=== PATIENT | female | born 1940 | race Caucasian/White ===

== ENCOUNTER 2016-12-20 10:01 | Emergency (ER) | payer MEDICARE, OTHER ==
[~2016-12-20] VITALS: Ht 160 cm; Wt 68.2 kg
[~2016-12-20 10:01] MED LIST: ASPIRIN 81M81 MG/TA2 PO; DITROPAN 5MG TAB5 MG PO; FLAGYL500 MG PO; NORVASC 5MG5 MG/TAB PO; TRICOR145 MG PO; ZOFRAN ODT4 MG PO
[2016-12-20 10:03] VITALS: BP 145/84; TEMP 97.9
[2016-12-20] MEDS ORDERED: OSCAL 500 TAB500 MG PO (11:23)
[2016-12-20] MEDS ORDERED: METAMUCIL MUL0.52 GM PO (11:23)
[2016-12-20] MEDS ORDERED: CRANBERRY FRUI405 MG PO (11:24)
[2016-12-20] MEDS ORDERED: MULTIPLE VITAMI1 CAP PO (11:24)
[2016-12-20 11:59] VITALS: PULSE 74
== END 2016-12-20 11:59 | disposition home or self-care (01) ==
LOC: COL.ER 10:01
DX: R60.0 Localized edema (principal); Z86.718 Personal history of other venous thrombosis and embolism

== ENCOUNTER → 2017-05-11 | Outpatient (CLI) | payer MEDICARE ==
[~2017-05-11] MED LIST changes: +CRANBERRY FRUI405 MG PO; +METAMUCIL MUL0.52 GM PO; +MULTIPLE VITAMI1 CAP PO; +OSCAL 500 TAB500 MG PO
== END ==
LOC: MC.RAD 09:40
DX: Z12.31 Encounter for screening mammogram for malignant neoplasm of breast (principal)

== ENCOUNTER 2017-12-15 13:57 | Emergency (ER) | payer OTHER ==
[~2017-12-15] VITALS: Ht 160 cm; Wt 70.5 kg
[2017-12-15 14:02] VITALS: BP 151/84
[2017-12-15 16:25] VITALS: PULSE 67; TEMP 97.3
== END 2017-12-15 15:35 | disposition home or self-care (01) ==
LOC: COL.ER 13:57
DX: S01.81XA Laceration without foreign body of other part of head, initial encounter (principal); S80.02XA Contusion of left knee, initial encounter; I10 Essential (primary) hypertension; R40.2412 Glasgow coma scale score 13-15, at arrival to emergency department; Z23 Encounter for immunization; Z96.643 Presence of artificial hip joint, bilateral; Z96.653 Presence of artificial knee joint, bilateral; Z79.82 Long term (current) use of aspirin; W01.198A Fall on same level from slipping, tripping and stumbling with subsequent striking against other object, initial encounter; Y92.512 Supermarket, store or market as the place of occurrence of the external cause

== ENCOUNTER 2017-12-22 13:00 | Emergency (ER) | payer OTHER ==
[2017-12-22 13:22] VITALS: BP 173/73; PULSE 66
== END 2017-12-22 13:45 | disposition home or self-care (01) ==
LOC: COL.ER 13:00
DX: S01.112D Laceration without foreign body of left eyelid and periocular area, subsequent encounter (principal); X58.XXXD Exposure to other specified factors, subsequent encounter

== ENCOUNTER 2018-01-05 11:50 | Emergency (ER) | payer MEDICARE ==
[~2018-01-05] VITALS: Ht 160 cm; Wt 70.5 kg
[2018-01-05 11:53] VITALS: BP 142/80; PULSE 79; TEMP 97.5
== END 2018-01-05 13:04 | disposition home or self-care (01) ==
LOC: COL.ER 11:50
DX: S05.12XA Contusion of eyeball and orbital tissues, left eye, initial encounter (principal); W01.198A Fall on same level from slipping, tripping and stumbling with subsequent striking against other object, initial encounter; Y92.009 Unspecified place in unspecified non-institutional (private) residence as the place of occurrence of the external cause

== ENCOUNTER → 2018-05-28 | Outpatient (CLI) | payer MEDICARE | LOC: MC.RAD 14:40 | DX: Z12.31 Encounter for screening mammogram for malignant neoplasm of breast (principal) ==

== ENCOUNTER 2018-07-28 18:23 | Emergency (ER) | payer MEDICARE ==
[~2018-07-28] VITALS: Ht 160 cm; Wt 65.9 kg
[2018-07-28 18:30] VITALS: TEMP 97.8
[2018-07-28] MEDS ORDERED: MASON NATURAL1200 MG PO (18:39)
[2018-07-28] MEDS ORDERED: HYGROTON 2525 MG/TAB (18:39)
[2018-07-28] MEDS ORDERED: CITRACAL + D CA1 TAB (18:40)
[2018-07-28] MEDS ORDERED: FLONASEALLERGY NS (18:42)
[2018-07-28 20:10] VITALS: BP 161/75; PULSE 68
== END 2018-07-28 20:10 | disposition home or self-care (01) ==
LOC: COL.ER 18:23
DX: S00.03XA Contusion of scalp, initial encounter (principal); I10 Essential (primary) hypertension; Z79.82 Long term (current) use of aspirin; W01.0XXA Fall on same level from slipping, tripping and stumbling without subsequent striking against object, initial encounter

== ENCOUNTER 2019-03-04 11:15 | Outpatient (RCR) | payer MEDICARE ==
[~2019-03-04 11:15] MED LIST changes: +CITRACAL + D CA1 TAB; +FLONASEALLERGY NS; +HYGROTON 2525 MG/TAB; +MASON NATURAL1200 MG PO
== END 2019-03-05 | disposition home or self-care (01) ==
LOC: MKS.ESL.OT
DX: M62.542 Muscle wasting and atrophy, not elsewhere classified, left hand (principal); M62.541 Muscle wasting and atrophy, not elsewhere classified, right hand; G62.9 Polyneuropathy, unspecified; Z79.82 Long term (current) use of aspirin; Z79.899 Other long term (current) drug therapy

== ENCOUNTER 2019-04-29 17:54 | Emergency (ER) | payer MEDICARE ==
[~2019-04-29] VITALS: Ht 157.5 cm; Wt 51.8 kg
[2019-04-29 18:10] VITALS: TEMP 97.3
[2019-04-29] MEDS ORDERED: DITROPAN 5MG TAB5 MG PO (21:03)
[2019-04-29] MEDS ORDERED: SLOW-MAG 6464 MG/TAB PO (21:03)
[2019-04-29] MEDS ORDERED: MULTIPLE VITAMI1 CAP PO (21:03)
[2019-04-29] MEDS ORDERED: METAMUCIL3.4 GM/Dos (21:04)
[2019-04-29] MEDS ORDERED: RILUTEK 50MG TA50 MG PO (21:04)
[2019-04-29] MEDS ORDERED: FOSAMAX 70MG TA70 MG PO (21:04)
[2019-04-29] MEDS ORDERED: VALIUM 2MG T2 MG/TAB PO (21:04)
[2019-04-29] MEDS ORDERED: MARINOL 2.5MG2.5 MG PO (21:04)
[2019-04-29] MEDS ORDERED: ASPIRIN 81M81 MG/TA2 PO (21:05)
[2019-04-29] MEDS ORDERED: LIPITOR 10MG10 MG PO (21:05)
[2019-04-29] MEDS ORDERED: HYGROTON 2525 MG/TAB (21:05)
[2019-04-29] MEDS ORDERED: FLOVENT DI50 MCG/Act IH (21:05)
[2019-04-29] MEDS ORDERED: CITRACAL + D CA1 TAB (21:05)
[2019-04-29] MEDS ORDERED: CRANBERRY FRUI425 MG PO (21:05)
[2019-04-29 21:06] VITALS: BP 141/68; PULSE 91
== END 2019-04-29 21:17 | disposition home or self-care (01) ==
LOC: COL.ER 17:54
DX: G12.21 Amyotrophic lateral sclerosis (principal); R05 Cough; I10 Essential (primary) hypertension; Z79.51 Long term (current) use of inhaled steroids; Z79.82 Long term (current) use of aspirin

== ENCOUNTER 2019-05-09 13:00 | Outpatient (RCR) | payer MEDICARE ==
[~2019-05-09 13:00] MED LIST changes: +CRANBERRY FRUI425 MG PO; +FLOVENT DI50 MCG/Act IH; +FOSAMAX 70MG TA70 MG PO; +HYGROTON 2525 MG/TAB PO; +LIPITOR 10MG10 MG PO; +MARINOL 2.5MG2.5 MG PO; +METAMUCIL3.4 GM/Dos; +RILUTEK 50MG TA50 MG PO; +SLOW-MAG 6464 MG/TAB PO; +VALIUM 2MG T2 MG/TAB PO
[2019-05-14] MEDS ORDERED: ZOFRAN 4MG T4 MG/TAB PO (21:17)
[2019-05-15] MEDS ORDERED: METAMUCIL MUL0.52 GM PO (01:21)
== END 2019-05-18 14:49 | disposition expired ==
LOC: MKS.ESL.PT 13:00
DX: G12.21 Amyotrophic lateral sclerosis (principal)

== ENCOUNTER 2019-05-13 16:42 | Outpatient (CLI) | payer MEDICARE ==
[~2019-05-13] VITALS: Ht 157.5 cm; Wt 45.9 kg
[2019-05-13 17:49] VITALS: BP 99/68; PULSE 101; TEMP 97.4
[2019-05-14] MEDS ORDERED: ZOFRAN 4MG T4 MG/TAB PO (21:17)
== END 2019-05-13 19:18 | disposition home or self-care (01) ==
LOC: EUO 16:42
DX: G12.21 Amyotrophic lateral sclerosis (principal)
CPT/HCPCS: J7030

== ENCOUNTER 2019-05-14 20:03 | Inpatient (IN) | payer MEDICARE ==
[~2019-05-14] VITALS: Ht 162.6 cm; Wt 51.8 kg
[2019-05-14 20:49] LABS: BASO % 0.3 % (0.0-2.0); EOS % 0.2 % (0-4.0); GRAN # 7.1 (1.4-6.5); GRAN % 77.2 % (42.2-75.2); HEMATOCRIT 44.8 % (37.0-47.0); HEMOGLOBIN 15.2 g/dl (12.5-16.0); LYMPH # 1.3 (1.2-3.4); LYMPH % 14.5 % (20.0-51.0); MEAN CELL VOLUME 87 fl (80.0-100.0); MEAN CORPUSCULAR HEMOGLOBIN 30 pg (27.0-31.0); MEAN CORPUSCULAR HGB CONC 34 g/dl (33.0-37.0); MEAN PLATELET VOLUME 10.1 fl (7.4-10.4); MONO # 0.7 (0.1-0.6); MONO % 7.5 % (1.7-9.3); PLATELET COUNT 275 K/mm3 (130-400); RED BLOOD COUNT 5.14 M/mm3 (4.10-5.30); REDCELL DISTRIBUTION WIDTH-CV 13.8 % (11.5-14.5)
[2019-05-14 21:14] LABS: ALBUMIN 3.5 gm/dL (3.5-5.0); BILIRUBIN,TOTAL 0.8 mg/dL (0.0-1.0); C-REACTIVE PROTEIN 3.4 mg/dL (0.0-0.9); CALCIUM 9.3 mg/dL (8.4-10.2); CREATININE, serum 0.31 (0.52-1.25); POTASSIUM 3.3 mmol/L (3.4-5.0); TOTAL PROTEIN 6.3 gm/dL (6.4-8.2)
[2019-05-14] MEDS ORDERED: ZOFRAN 4MG T4 MG/TAB PO (21:17)
--- NOTE | 2019-05-14 23:55 | NUR ---
Pt arrived to room 311, transferred per stretcher by ED staff. Pt very sleepy, makes eye contact c verbal stimuli but does not respond verbally at this time. at bedside. Pt/hu oriented to room, unit policies et current POC. Questions invited et answered et hu verbalizes understanding. No needs at this time. Call light in reach, bed alarm on. Will continue c admit process.
[2019-05-14 23:56] VITALS: BP 150/78; PULSE 95; TEMP 97.6
[2019-05-15] MEDS ORDERED: METAMUCIL MUL0.52 GM PO (01:21)
[2019-05-15 03:57] VITALS: BP 159/77; PULSE 87; TEMP 97.9
[2019-05-15 06:17] LABS: CALCIUM 8.5 mg/dL (8.4-10.2); CREATININE, serum 0.24 (0.52-1.25); POTASSIUM 3.5 mmol/L (3.4-5.0)
[2019-05-15 06:21] LABS: BASO % 0.2 % (0.0-2.0); GRAN # 8.8 (1.4-6.5); GRAN % 85.7 % (42.2-75.2); HEMATOCRIT 46.8 % (37.0-47.0); HEMOGLOBIN 15.1 g/dl (12.5-16.0); LYMPH # 0.7 (1.2-3.4); LYMPH % 6.5 % (20.0-51.0); MEAN CORPUSCULAR HEMOGLOBIN 30 pg (27.0-31.0); MEAN CORPUSCULAR HGB CONC 32 g/dl (33.0-37.0); MEAN PLATELET VOLUME 10.3 fl (7.4-10.4); MONO # 0.7 (0.1-0.6); MONO % 6.3 % (1.7-9.3); PLATELET COUNT 246 K/mm3 (130-400); RED BLOOD COUNT 5.11 M/mm3 (4.10-5.30)
[2019-05-15 06:38] LABS: MEAN CELL VOLUME 92 fl (80.0-100.0)
[2019-05-15 06:57] VITALS: BP 142/70; PULSE 85; TEMP 98.7
--- NOTE | 2019-05-15 10:30 | NUR ---
SW attended clinical rounds. Patient's present as well. Patient is not alert and is not responsive to verbal/physical stimuli. Doctor spoke with patient's about goals of care and possible g tube placement. reports he would like patient to progress to her baseline and would like to her to be involved in any decisions with g tube placement. also reports patient's two daughters will be visiting later today. Doctor will follow up with and daughters later today. Patient's lives at home with her . Patient's and daughters are primary caretakers. Patient's PCP is Dr Wilson and medications are obtained at [facility]. Chloé uses a lift, hospital bed, lift chair, triology, and cough assist at home. Patient will also be set up with home oxygen. No home health services have been reported. Patient's reports patient does outpatient PT and OT. SW will continue to follow.
[2019-05-15 11:36] VITALS: BP 140/68; PULSE 76
--- NOTE | 2019-05-15 11:36 | NUR ---
Met with daughter in room. has gone home to rest and regroup but shuold be back later. Daughter reports that she and her siblings have been very aware of the rapid decline that their mother has experienced. Yesterday afternoon she was still saying a few words but then got a glazed look on her face and really hasn't said anything since admitted. Even when spoken to, she does not give any clear response. They have been in contact with [facility] to talk about home health services. Introduced the subject of hospice services and the various locations that these can be provided. Even the subject of the feeding tube is not clear. per daughter, pt had not wanted a feeding tube. had reported he needed to talk with her first. At this point she is not able to talk at all. Family is supporting their father and hoping to help him transition in care plans if pt does not regain ability to communicate.
--- NOTE | 2019-05-15 13:28 | NUR ---
requesting for patient to have her home pills as well as a drink of water. Discussed with the that the patient is not alert enough to take anything by mouth and it would not be safe for the patient to drink. Will swab patients mouth to keep it moist and ask about Biotene. Pt repositioned at this time, did slightly open her eyes and mouth at this time. Did not respond to staff.
[2019-05-15 16:49] VITALS: BP 137/58; PULSE 79; TEMP 98.3
[2019-05-15 20:25] VITALS: BP 152/75; PULSE 86; TEMP 96.4
--- NOTE | 2019-05-15 20:50 | NUR ---
PT RESTING IN BED ON LEFT SIDE WITH FAMILY MEMBERS AT SIDE. NO RESPONSE. NO EYE OPENING. PT IS A DNI. WILL CONTINUE TO MONITOR. FAMILY MADE AWARE OF CALL LIGHT.
[2019-05-16 00:12] VITALS: BP 133/68; PULSE 82; TEMP 97.5
[2019-05-16 04:33] VITALS: BP 140/82; PULSE 100; TEMP 96.1
--- NOTE | 2019-05-16 08:00 | NUR ---
Pt resting in bed with eyes closed, resp uneven, periodic, 10/min. Trilogy in place per family's request. Pt's family denies needs at this time. This nurse encourages family to call if pt's condition changes or any needs arise.
--- NOTE | 2019-05-16 08:30 | NUR ---
REPOSITIONED PT PER FAMILYS REQUEST. NO RESPONSE THIS SHIFT. CONTINUES TO BE NPO. NS WITH 40MEQ OF K+ INFUSING IN RIGHT WRIST/FA AT 75ML/HR. BILAT HANDS WITH 3+ PITTING EDEMA. SEQUENTIALS ON BILAT. HOB ELEVATED. AROUND 3:30ISH PT'S SPOUSE CAME TO NURSES DESK AND SAID HIS WAS NOT BREATHING. WHEN CHECKED PT HAD VERY SHALLOW RESP. 12-14. NOTIFIED PENNY HARRISON TO VISIT WITH SPOUSE ABOUT PT CONDITION. SPOUSE CALLED DAUGHTERS AND THEY CAME IN. REPOSITIONED PT AND FOR THE FIRST TIME SHE HAD A LARGE INCONT. VOID THIS SHIFT. FAMILY HAD DISCUSSION AND PT MADE DNR. WHEN IVF COMPLETED, FAMILY DID NOT WANT ANY MORE GIVEN. FAMILY REQUEST AND PT GIVEN MORPHINE 2MG IV PER ORDER FROM DR VALVERDE. REPORT GIVEN TO SANDY FELICIANO.
--- NOTE | 2019-05-16 10:16 | NUR ---
Checked on pt this am. had placed his cell phone on her shoulder so she could hear the conversation he was having with their son. He reports she is comfortable and denies further needs. He also reports that she is reacting to him. She showed no evidence of reaction to this nurse.
--- NOTE | 2019-05-16 13:18 | NUR ---
SW and doctor met with patient and family. Patient is now on comfort care.
--- NOTE | 2019-05-16 17:30 | NUR ---
Spoke with pt's daughter regarding possible transfer to Hospice in the am, family would like the referral sent if pt's condition remains the same. Family has denied the need for medication for the pt or other concerns throughout the shift.
--- NOTE | 2019-05-17 05:37 | NUR ---
No response from Pt this shift. Repositioned at this time. Opens eyes and are fixed. Resp 12-14/min. Seq. off for a short time and then reapplied. Spouse and daughter at bedside. HOB elevated. Bilat hand edema 1+ this shift. Will continue to monitor. Call light within reach of family.
--- NOTE | 2019-05-17 10:45 | NUR ---
Follow-up visit; Political Scientist let patient's daughter she is present for their family.
--- NOTE | 2019-05-17 10:53 | NUR ---
KEERTHI met with patient's . He reported he would like KEERTHI to fax a referral to [facility] in the event patient will require that service.
--- NOTE | 2019-05-17 11:55 | NUR ---
Comfort quilt provided to pt and family with explanation. They would like to remain in hospital on trilogy vent until her son can get here. Her does appear imminent. Today we will keep her here rather than transferring per family request.
--- NOTE | 2019-05-17 20:12 | NUR ---
Pt on comfort care. family at bedside for morning and left to run errands for afternoon. pt turned and repositioned throughout the day. SCDs on BLE. Heels floated with pillow. Pt on trilogy, skin behind ears and around mask intact. pt unresponsive. LH IV patent. this nurse admnistered morphine per family request late this afternoon. pt has had no urine. Report given to SANDY Carrillo to resume care. Daughter at bedside at time of shift change, denies needs. pt repositioned by Lorena and this nurse.
--- NOTE | 2019-05-18 07:05 | NUR ---
This nurse and Lorena RN enter room for report. Pt's states, "she's passed on." No resp or pulse confirmed by this nurse and Lorena RN. Trilogy turned off and mask removed. IV removed from right forearm with tip intact. supervisor claims notified.
--- NOTE | 2019-05-18 13:30 | NUR ---
Body released to home.
== END 2019-05-18 13:30 | disposition expired | DRG 57 ==
LOC: COL.ER 20:03 → MEDICAL 21:47
PROVIDERS: Emergency Medicine; Nurse Practitioner; ADMIT Family Medicine
DX: G12.21 Amyotrophic lateral sclerosis (principal); E87.1 Hypo-osmolality and hyponatremia; E44.0 Moderate protein-calorie malnutrition; Z51.5 Encounter for palliative care; Z66 Do not resuscitate; I10 Essential (primary) hypertension; Z88.1 Allergy status to other antibiotic agents; Z88.5 Allergy status to narcotic agent; Z88.8 Allergy status to other drugs, medicaments and biological substances; R09.02 Hypoxemia; E87.6 Hypokalemia
CPT/HCPCS: 99223-AI; 99231-AI; 99238; J2270; J3480; J7030